=== PATIENT | female | born 1935 | race Caucasian/White ===

== ENCOUNTER 2018-08-16 10:54 | Outpatient (CLI) | payer OTHER | END 2018-08-16 10:55 | disposition home or self-care (01) | LOC: LAB 10:54 | PROVIDERS: ATTEND Family Medicine | DX: E11.9 Type 2 diabetes mellitus without complications (principal); R30.0 Dysuria | CPT/HCPCS: 36415; 80053; 81001; 83036; 85027 ==

== ENCOUNTER 2018-11-25 07:24 | Outpatient (CLI) | END 2018-11-25 07:25 | disposition home or self-care (01) | LOC: NONPT 07:24 | PROVIDERS: ATTEND Internal Medicine | DX: N39.0 Urinary tract infection, site not specified (principal) | CPT/HCPCS: 81001; 87086 ==

== ENCOUNTER 2020-04-16 14:33 | Inpatient (IN) ==
[2020-04-16 15:26] VITALS: BMI 24.6
[2020-04-16] MEDS ORDERED: URO-JET MUCOUSMEMB STA (15:31)
[2020-04-16] MEDS ORDERED: SODIUM CHLORIDE 1,000 ML IV STA (15:37)
[2020-04-16] MEDS ORDERED: TYLENOL PO PRN (15:43)
[2020-04-16 15:54] LABS: ABG BASE EXCESS -3.8 (-2.0-2.0); ABG HCO3 22.6 (22.0-26.0)
--- NOTE | 2020-04-16 16:34 | DI ---
EXAM: Single view of the chest. History: 05/03/2019 Comparison: Chest radiograph 04/06/2020 Findings: Heart is mildly enlarged. Patchy bilateral lung infiltrates. No obvious pleural fluid an d no pneumothorax. No acute osseous abnormalities. Impression: Mild cardiomegaly with patchy bilateral lung infiltrates suspicious for pneumonia
[2020-04-16 17:10] LABS: TROPONIN I 0.079 ng/ml (0.0000-0.120)
[2020-04-16 17:12] LABS: URIC ACID 15.13 mg/dL (2.5-6.2)
[2020-04-16 17:16] LABS: BILIRUBIN,URINE Negative (NEGATIVE); CLARITY,URINE Cloudy (CLEAR); GLUCOSE, URINE (UA) Negative (NEGATIVE); KETONES,URINE Negative (NEGATIVE); LEUKOCYTE ESTERASE ,URINE 3+ (NEGATIVE); NITRITE,URINE Negative (NEGATIVE); PROTEIN,URINE 1+ (NEGATIVE); URINE, BLOOD 2+ (NEGATIVE); UROBILINOGEN,URINE 0.2 (0.2)
[2020-04-16 17:23] LABS: BACTERIA,URINE 3+ (NOT PRESENT); URINE WBC, MICROSCOPIC 50-100 (0-2); YEAST,URINE 1+ (NOT PRESENT)
[2020-04-16 17:33] LABS: AMORPHOUS SEDIMENT,UR 1+ (NOT PRESENT); URIC ACID CRYSTALS,URINE 1+ (NOT PRESENT)
[2020-04-16 17:34] LABS: COLOR,URINE Yellow (YELLOW)
[2020-04-16] MEDS: DECADRON IM SCH (18:13)
[2020-04-16] MEDS: ROCEPHIN 1 GM/50 ML D5W 1 GM/50 ML BAG IV SCH (18:13)
[2020-04-16] MEDS: ATIVAN IM PRN (18:14)
[2020-04-16] MEDS ORDERED: ZITHROMAX 250 MG in SODIUM CHLORIDE 250 ML IV SCH (18:30)
[2020-04-16] MEDS: VENTOLIN HFA (PER PUFF-WITH SPACER) IH SCH (19:35)
[2020-04-16 20:05] LABS: BASOPHILS % (AUTO) 0.2 % (0.0-3.0); HEMATOCRIT 47.3 % (37.0-47.0); HEMOGLOBIN 15.5 g/dl (12.0-16.0); IMMATURE GRANULOCYTE # (AUTO) 0.2 (0.0-1.0); IMMATURE GRANULOCYTE % (AUTO) 1.6 % (0.0-5.0); LYMPHOCYTES # (AUTO) 0.8 K/uL (0.60-3.4); LYMPHOCYTES % (AUTO) 6.1 (10.0-50.0); MEAN CORPUSCULAR HEMOGLOBIN 32.3 pg (27.0-31.0); MEAN CORPUSCULAR HGB CONC 32.8 (31.8-35.4); MEAN CORPUSCULAR VOLUME 98.5 fl (81.0-99.0); MONOCYTES # (AUTO) 0.7 K/uL (0.4-2.0); MONOCYTES % (AUTO) 5.8 (0-10); NEUTROPHILS # (AUTO) 10.5 K/ul (2.0-6.9); NEUTROPHILS % (AUTO) 86.3 % (42.2-75.2); PLATELET COUNT 191 10^3/uL (140-440); RDW COEFFICIENT OF VARIATION 14.9 % (11.6-14.8); WHITE BLOOD COUNT 12.21 K/ul (4.6-10.2)
[2020-04-16 20:25] LABS: ALANINE AMINOTRANSFERASE 32.5 U/L (0-35); ALBUMIN 3.71 g/dL (3.5-5.0); ALKALINE PHOSPHATASE 80.5 U/L (53-141); ASPARTATE AMINO TRANSFERASE 56.4 U/L (14-36); BILIRUBIN,TOTAL 0.45 mg/dL (0.2-1.3); CALCIUM 8.14 mg/dL (8.4-10.2); CARBON DIOXIDE 18.5 mmol/L (22-30.0); CHLORIDE 106.5 mmol/L (98-107); GLUCOSE 131.4 mg/dL (74-106); POTASSIUM 5.56 mmol/L (3.5-5.1); SODIUM 142.8 mmol/L (134.5-145); TOTAL PROTEIN 7.62 g/dL (6.3-8.2)
[2020-04-16] MEDS: SYMBICORT 160-4.5 MCG INHALER IH SCH (20:28)
[2020-04-16] MEDS: HALDOL IM PRN (20:28)
[2020-04-16 20:53] LABS: BLOOD UREA NITROGEN 160.2 mg/dL (7-17)
[2020-04-16 20:54] LABS: CREATININE 6.02 mg/dL (0.60-1.30)
[2020-04-16] MEDS ORDERED: COZAAR PO SCH (21:00)
[2020-04-16] MEDS ORDERED: VENTOLIN HFA (PER PUFF-WITH SPACER) IH SCH (21:00)
[2020-04-16] MEDS ORDERED: DESYREL PO SCH (21:00)
[2020-04-16] MEDS: LEVEMIR SUBCUT SCH (21:07)
[2020-04-17] MEDS: ATIVAN IM PRN ×4 (04:13→19:38)
[2020-04-17] MEDS: VENTOLIN HFA (PER PUFF-WITH SPACER) IH SCH ×3 (05:27→19:20)
[2020-04-17 05:51] LABS: BASOPHILS % (AUTO) 0.3 % (0.0-3.0); HEMATOCRIT 45.4 % (37.0-47.0); IMMATURE GRANULOCYTE # (AUTO) 0.2 (0.0-1.0); IMMATURE GRANULOCYTE % (AUTO) 1.9 % (0.0-5.0); LYMPHOCYTES # (AUTO) 0.4 K/uL (0.60-3.4); LYMPHOCYTES % (AUTO) 4.7 (10.0-50.0); MEAN CORPUSCULAR HEMOGLOBIN 32.4 pg (27.0-31.0); MEAN CORPUSCULAR VOLUME 98.1 fl (81.0-99.0); MONOCYTES # (AUTO) 0.3 K/uL (0.4-2.0); MONOCYTES % (AUTO) 2.7 (0-10); NEUTROPHILS # (AUTO) 8.4 K/ul (2.0-6.9); NEUTROPHILS % (AUTO) 90.4 % (42.2-75.2); PLATELET COUNT 182 10^3/uL (140-440); RDW COEFFICIENT OF VARIATION 14.7 % (11.6-14.8); RED BLOOD COUNT 4.63 10^6/ul (4.20-5.40); WHITE BLOOD COUNT 9.32 K/ul (4.6-10.2)
[2020-04-17 06:04] LABS: ALANINE AMINOTRANSFERASE 29.5 U/L (0-35); ALBUMIN 3.45 g/dL (3.5-5.0); ALKALINE PHOSPHATASE 75.2 U/L (53-141); ASPARTATE AMINO TRANSFERASE 52.4 U/L (14-36); BILIRUBIN,TOTAL 0.39 mg/dL (0.2-1.3); CALCIUM 8.22 mg/dL (8.4-10.2); CARBON DIOXIDE 20.3 mmol/L (22-30.0); CHLORIDE 112.1 mmol/L (98-107); GLUCOSE 163.3 mg/dL (74-106); POTASSIUM 5.32 mmol/L (3.5-5.1); SODIUM 145.1 mmol/L (134.5-145); TOTAL PROTEIN 7.2 g/dL (6.3-8.2)
[2020-04-17 06:21] LABS: CREATININE 5.44 mg/dL (0.60-1.30)
[2020-04-17] MEDS ORDERED: SYNTHROID PO SCH ×2 (06:30)
[2020-04-17] MEDS: SODIUM CHLORIDE 1,000 ML IV SCH ×2 (07:59→22:34)
[2020-04-17] MEDS ORDERED: PREDNISONE PO SCH (09:00)
[2020-04-17] MEDS ORDERED: MICRO-K CAP PO SCH (09:00)
[2020-04-17] MEDS ORDERED: ZINC-220 PO SCH (09:00)
[2020-04-17] MEDS: LEVEMIR SUBCUT SCH ×2 (09:22→20:21)
[2020-04-17] MEDS: DECADRON IM SCH (09:26)
[2020-04-17] MEDS: HALDOL IM PRN ×2 (09:30→20:59)
[2020-04-17] MEDS: SYMBICORT 160-4.5 MCG INHALER IH SCH ×2 (09:33→23:48)
[2020-04-17] MEDS: ZITHROMAX 500 MG in SODIUM CHLORIDE 250 ML IV SCH (12:46)
[2020-04-17] MEDS ORDERED: LIDOCAINE HCL 1% SDV ONE (13:48)
[2020-04-17] MEDS ORDERED: ROCEPHIN 1 GM VIAL ONE (13:48)
[2020-04-17] MEDS: LIDOCAINE HCL 1% SDV IM STA (13:52)
[2020-04-17] MEDS: ROCEPHIN 1 GM VIAL IM SCH (15:06)
[2020-04-17] MEDS: ROCEPHIN 1 GM/50 ML D5W 1 GM/50 ML BAG IV SCH (15:09)
[2020-04-18] MEDS: VENTOLIN HFA (PER PUFF-WITH SPACER) IH SCH ×3 (04:45→20:20)
[2020-04-18 08:21] LABS: BASOPHILS % (AUTO) 0.3 % (0.0-3.0); HEMATOCRIT 46.4 % (37.0-47.0); IMMATURE GRANULOCYTE # (AUTO) 0.2 (0.0-1.0); IMMATURE GRANULOCYTE % (AUTO) 1.8 % (0.0-5.0); LYMPHOCYTES # (AUTO) 0.7 K/uL (0.60-3.4); LYMPHOCYTES % (AUTO) 5.8 (10.0-50.0); MEAN CORPUSCULAR HEMOGLOBIN 32.2 pg (27.0-31.0); MEAN CORPUSCULAR HGB CONC 32.3 (31.8-35.4); MEAN CORPUSCULAR VOLUME 99.6 fl (81.0-99.0); MONOCYTES # (AUTO) 1.3 K/uL (0.4-2.0); MONOCYTES % (AUTO) 11.1 (0-10); NEUTROPHILS # (AUTO) 9.2 K/ul (2.0-6.9); PLATELET COUNT 227 10^3/uL (140-440); RDW COEFFICIENT OF VARIATION 15.2 % (11.6-14.8); RED BLOOD COUNT 4.66 10^6/ul (4.20-5.40); WHITE BLOOD COUNT 11.38 K/ul (4.6-10.2)
[2020-04-18 09:06] LABS: ALANINE AMINOTRANSFERASE 27.9 U/L (0-35); ALBUMIN 3.41 g/dL (3.5-5.0); ASPARTATE AMINO TRANSFERASE 39.1 U/L (14-36); BILIRUBIN,TOTAL 0.4 mg/dL (0.2-1.3); CALCIUM 9.31 mg/dL (8.4-10.2); CARBON DIOXIDE 20.9 mmol/L (22-30.0); CREATININE 2.7 mg/dL (0.60-1.30); GLUCOSE 171.8 mg/dL (74-106); POTASSIUM 5.3 mmol/L (3.5-5.1); SODIUM 154.5 mmol/L (134.5-145); TOTAL PROTEIN 7.3 g/dL (6.3-8.2)
[2020-04-18 09:16] LABS: CHLORIDE 125.1 mmol/L (98-107)
[2020-04-18 09:20] LABS: BLOOD UREA NITROGEN 118.1 mg/dL (7-17)
--- NOTE | 2020-04-18 09:51 | PCM.PROG ---
Attending Provider: ATTENDING PROVIDER: Dr. ANALIA HILL This patient is seen with Cyn Meyers, Nurse Practitioner. DATE OF SERVICE: 04/18/20 SUBJECTIVE: This 85 year old /WHITE F was hospitalized 04/16/20. The patient is resting comfortably. She has been less anxious and agitated on Ativan. Kidney function slightly improved. Sodium is slightly elevated. REVIEW OF SYSTEMS: CONSTITUTIONAL: No night sweats. No fatigue, malaise, lethargy. No fever or chills. Weakness. HEENT: Eyes: No visual changes. No eye pain. No eye discharge. ENT: No runny nose. No epistaxis. No sinus pain. No odynophagia. No congestion. RESPIRATORY: No cough, no congestion. No hemoptysis. Shortness of breath. CARDIOVASCULAR: No angina symptoms. No CHF symptoms. No atypical chest pain for CAD. No palpitations. No orthopnea.. GASTROINTESTINAL: No abdominal pain. No nausea or vomiting. No diarrhea or constipation. No hematemesis. No hematochezia. GENITOURINARY: No urgency. No frequency. No dysuria. No hematuria. No obstructive symptoms. No discharge. No pain. No significant abnormal bleeding. MUSCULOSKELETAL: No musculoskeletal pain; no joint swelling. NEUROLOGICAL: Awake, alert, confusion. No headache. No neck pain. No syncope. No seizures. No dizziness. PSYCHIATRIC: Not anxious. No depression. No suicidal thoughts. No homicidal thoughts. SKIN: No rash. No lesions. No wounds. ENDOCRINE: No unexplained weight loss. No weight gain. HEMATOLOGIC/LYMPHATIC: No anemia. No purpura. No petechiae. No prolonged or excessive bleeding. No palpable lymph nodes. PHYSICAL EXAMINATION: GENERAL: The patient is awake, alert and oriented, lying in bed in no distress. VITAL SIGNS: Temperature 96.9 F, Pulse 90, Respiratory Rate 19, BP 144/90, Pulse Ox 96% HEENT: Head normocephalic, atraumatic. Eyes: Extraocular muscles are intact. Pupils are equal, round and reactive to light and accommodation. Ears: No lesions. Nose appeared normal. Throat: No exudate or erythema. NECK: Supple. No JVD, no carotid bruit. No lymphadenopathy or thyromegaly. LUNGS: Clear to auscultation. Percussion note normal. Chest symmetrical. HEART: S1, S2, no S3. No murmurs. No cyanosis or clubbing. No ascites. Pulses: Dorsalis pedis and posterior tibial pulses +1 to +2 both sides. ABDOMEN: Soft. Non-tender. Bowel sounds active. No CVA tenderness. No mass fe lt. EXTREMITIES: Trace edema. Full range of motion of all extremities, equal. NEUROLOGIC: No focal deficit. Cranial nerves II through XII are grossly intact. No headache, no double vision or headache. SKIN: Not dry. Intact. Turgor-normal. LYMPHATIC: No palpable lymph nodes/no lymphedema. MUSCULOSKELETAL: Normal joints with no swelling. Muscle tone is normal. LAB REVIEW: 04/18/20 07:55 04/17/20 05:30 04/18/20 07:55: WBC 11.38 H, RBC 4.66, Hgb 15.0, Hct 46.4, MCV 99.6 H, MCH 32.2 H, MCHC 32.3, RDW Coeff of Raine 15.2 H, Plt Count 227, Immature Gran % (Auto) 1.8, Neut % (Auto) 81.0 H, Lymph % (Auto) 5.8 L, Hayes % (Auto) 11.1 H, Eos % (Auto) 0.0, Baso % (Auto) 0.3, Neut # (Auto) 9.2 H, Lymph # (Auto) 0.7, Hayes # (Auto) 1.3, Eos # (Auto) 0.0, Baso # (Auto) 0.0, Immature Gran # (Auto) 0.2 ASSESSMENT: Please see below. 1. Acute renal failure 2. Hypernatremia 3. Hyperkalemia 4. Bilateral pneumonia due to COVID 19 5. Dementia with behavioral disturbances PLAN: 1. Discontinue normal saline 2. Change IV fluids D5 1/2 at 100cc per hour Plan and coordination of the patient's care discussed in the presence of Head Of Drama and nurse. SCRIBED BY: Janell ENGist scribed while in presence of service performed by Dr. Hill/Cyn Meyers APRN on 04/18/20 ([id number])
[2020-04-18] MEDS: DEXTROSE 5%-1/2NS IV SOLUTION 1,000 ML IV SCH ×2 (10:12→22:16)
--- NOTE | 2020-04-18 11:22 | PN ---
DATE OF SERVICE: 04/16/2020 SUBJECTIVE: [facility]. Admitted orders were written by the Emergency room. It was decided not for this patient to stop in the emergency room because she has been COVID positive for past 10-12 days. Her BUN is more than 100 and creatinine 6.2. She is in acute renal failure. Last creatinine and BUN were acceptable and that was nearly 4-54 days ago and she was discharged from the hospital at [facility]. Her condition has deteriorated and she hasn't been eating or drink and she is more or less obtunded. She is DNR. The patient's daughter who is director of retail marketing Home, she is also hit was COVID unable to take care of the patient. In any case the [facility] is a [facility] the [facility]. The patient will be given IV fluids and whatever she could be treated with noninvasive measures. REVIEW OF SYSTEMS: CONSTITUTIONAL: No night sweats. No fatigue, malaise, lethargy. No fever or chills. HEENT: Eyes: No visual changes. No eye pain. No eye discharge. ENT: No runny nose. No epistaxis. No sinus pain. No sore throat. No odynophagia. No congestion. RESPIRATORY: No cough, no congestion. No hemoptysis. No shortness of breath. CARDIOVASCULAR: No angina symptoms. No CHF symptoms. No atypical chest pain for CAD. No palpitations. No PND. No orthopnea. GASTROINTESTINAL: No abdominal pain. No nausea or vomiting. No diarrhea or constipation. No hematemesis. No hematochezia. GENITOURINARY: No urgency. No frequency. No dysuria. No hematuria. No obstructive symptoms. No discharge. No pain. No significant abnormal bleeding. MUSCULOSKELETAL: No musculoskeletal pain; no joint swelling. NEUROLOGICAL: No headache. No neck pain. No syncope. No seizures. No dizziness. PSYCHIATRIC: Not anxious. No depression. No suicidal thoughts. No homicidal thoughts. SKIN: No rash. No lesions. No wounds. ENDOCRINE: No unexplained weight loss. No weight gain. HEMATOLOGIC/LYMPHATIC: No anemia. No purpura. No petechiae. No prolonged or excessive bleeding. No palpable lymph nodes. PHYSICAL EXAMINATION: GENERAL: The patient is restless and sleepy. VITAL SIGNS: Respiratory rate 22, blood pressure systolic 90, temperature 101, pulse 100. HEENT: Head normocephalic, atraumatic. Eyes: Extraocular muscles are intact. Pupils are equal, round and reactive to light and accommodation. Ears: No lesions. Nose appeared normal. Throat: No exudate or erythema. Mucous membrane dry. NECK: Supple. No JVD, no carotid bruit. No lymphadenopathy or thyromegaly. LUNGS: Decreased breath sounds. Clear to auscultation. Percussion note normal. Chest symmetrical. HEART: S1, S2, no S3. No murmurs. No cyanosis or clubbing. No ascites. Pulses: Dorsalis pedis and posterior tibial pulses +1 to +2 bilaterally. ABDOMEN: Soft. Nontender. Bowel sounds active. No CVA tenderness. No mass felt. EXTREMITIES: No edema. Full range of motion of all extremities, equal. NEUROLOGIC: No focal deficit. Cranial nerves II through XII are grossly intact. No headache, no double vision or headache. SKIN: Not dry. Intact. Turgor - Poor LYMPHATIC: No palpable lymph nodes/no lymphedema. MUSCULOSKELETAL: Normal joints with no swelling. Muscle tone is normal. LABS: Arterial blood gasses shows pH 7.3 with oxygen saturation 98% on 3 liters. The patient's oxygen will be cut down to 2 liters and still it is sating at 90-95. pCo2 46 borderline high. The patient has remained a little bit restless so she will be given 1mg Haldol every 6 hourly. Ativan 1mg 6 hourly IM. Also there has been a difficulty starting the IV fluids. She will be getting a bolus after that. It will 125cc per hour. Chest x-ray showed patchy pneumonia ASSESSMENT: 1. Acute renal failure 2. Patchy pneumonia likely COVID 3. Dementia 4. Dehydration 5. Diabetes mellitus PLAN: 1. Rocephin 1 gram IV for secondary infection 2. Dexamethasone 6mg IM every day 3. Sliding scale for insulin 4. EKG to be done 5. Telemetry 6. Oxygen 2 liters 7. Ativan and Haldol as mentioned above. 8. Daily CBC and CMP PROGNOSIS: POOR 2. 3. TIME SPENT: More than 30 minutes. Plan and coordination of the patient's care discussed in the presence of nurse. DANIELLE
[2020-04-18] MEDS: ZITHROMAX 500 MG in SODIUM CHLORIDE 250 ML IV SCH (11:30)
[2020-04-18] MEDS: LEVEMIR SUBCUT SCH ×2 (11:36→20:35)
[2020-04-18] MEDS: DECADRON IM SCH (11:40)
[2020-04-18] MEDS: SYMBICORT 160-4.5 MCG INHALER IH SCH ×2 (12:15→20:35)
[2020-04-18] MEDS: ROCEPHIN 1 GM VIAL IM SCH (12:18)
[2020-04-18] MEDS: LIDOCAINE HCL 1% SDV IM STA (12:19)
[2020-04-18] MEDS: SODIUM CHLORIDE 1,000 ML IV SCH (12:23)
--- NOTE | 2020-04-18 14:57 | HP ---
DATE OF SERVICE: 04/16/20 HISTORY OF PRESENT ILLNESS: The patient was recently hospitalized with Covid-19, right lower extremity edema and cellulitis and acute bronchitis. She has a history of chronic kidney disease, creatinine stable when she left. At 1.2 today at the correction. Repeat CMP was done which showed a BUN of 157 and creatinine 6.88. She is a direct admit for acute renal failure. PAST MEDICAL HISTORY: Positive Covid-19 on 04/06/20 Right lower extremity edema and cellulitis Recent bronchitis Dementia with behavioral disturbances Chronic kidney disease Stage 2 to 3 Diabetes mellitus type 2 GERD Polyarthritis Hypothyroidism Recurrent falls Obesity B12 deficiency Chronic leg edema Recurrent UTI PAST SURGICAL HISTORY: Bilateral total knee replacement Cholecystectomy Carpal tunnel surgery REVIEW OF SYSTEMS: CONSTITUTIONAL: Weakness. No night sweats. No fatigue, malaise, lethargy. No fever or chills. HEENT: Eyes: No visual changes. No eye pain. No eye discharge. ENT: No runny nose. No epistaxis. No sinus pain. No sore throat. No odynophagia. No ear pain. No congestion. RESPIRATORY: No cough, no congestion. No hemoptysis. No shortness of breath. CARDIOVASCULAR: No angina symptoms. No CHF symptoms. No atypical chest pain for CAD. No palpitations. No PND. No orthopnea. GASTROINTESTINAL: No abdominal pain. No nausea or vomiting. No diarrhea or constipation. No hematemesis. No hematochezia. GENITOURINARY: No urgency. No frequency. No dysuria. No hematuria. No obstructive symptoms. No discharge. No pain. No significant abnormal bleeding. MUSCULOSKELETAL: No musculoskeletal pain. No joint swelling. No arthritis. NEUROLOGICAL: Confusion. No headache. No neck pain. No syncope. No seizures. No dizziness. PSYCHIATRIC: Not anxious. No depression. No suicidal thoughts. No homicidal thoughts. SKIN: No rash. No lesions. No wounds. ENDOCRINE: No unexplained weight loss. No weight gain. HEMATOLOGIC/LYMPHATIC: No anemia. No purpura. No petechiae. No prolonged or excessive bleeding. No palpable lymph nodes. PERSONAL/FAMILY/SOCIAL HISTORY: She is , lives at [place]. Her POA is her daughter. She is a nonsmoker. No alcohol or ilicit drug use. MEDICATIONS: Potassium Chloride 10 mEq p.o. daily Detemir Insulin 20 unit subcut b.i.d. Furosemide 40 mg p.o. daily Cetirizine 10 mg p.o. daily Acetaminophen 325 mg p.o. q.i.d. p.r.n. Acetaminophen 650 mg p.o. b.i.d. p.r.n. Trazodone 50 mg p.o. bedtime Levothyroxine 125 mcg p.o. daily Insulin aspart U-100 one sliding scale dose subcut as directed Cyanocobalamin 1000 mcg monthly Spironolactone 25 mg p.o. daily Bisacodyl 10 mg p.o. bedtime Cholecalciferol 125 mcg p.o. daily Famotidine 20 mg p.o. b.i.d. Prednisone 10 mg p.o. daily 5 days Zinc Sulfate 220 mg p.o. daily Albuterol Sulfate two puff INH t.i.d. 30 days Budesonide - Formoterol two puff INH b.i.d. Lorazepam 0.5 mg p.o. b.i.d. Losartan 50 mg p.o. b.i.d. ALLERGIES: CEPHALEXIN, HYDROCODONE, MORPHINE PHYSICAL EXAMINATION: GENERAL: The patient has decreased responsiveness however she is alert, pleasantly confused. Pallor positive. Dry mucous membranes. HEENT: Head normocephalic, atraumatic. Eyes: Extraocular muscles are intact. Pupils are equal, round and reactive to light and accommodation. Ears: No lesions. Nose appeared normal. Throat: No exudate or erythema. NECK: Supple. No JVD, no carotid bruit. No lymphadenopathy or thyromegaly. LUNGS: Diminished breath sounds. Clear to auscultation. Percussion note normal. Chest symmetrical. HEART: S1, S2, no S3. No murmur. No cyanosis or clubbing. No ascites. Pulses: Dorsalis pedis and posterior tibial pulses +1 to +2 bilaterally. ABDOMEN: Soft. Nontender. Bowel sounds active. No CVA tenderness. No mass felt. EXTREMITIES: Trace bilateral leg edema. Full range of motion of all extremities, equal. NEUROLOGIC: No focal deficit. Cranial nerves II through XII are grossly intact. No headache, no double vision or headache. SKIN: Not dry. Intact. Turgor - normal. LYMPHATIC: No palpable lymph nodes/no lymphedema. MUSCULOSKELETAL: Normal joints with no swelling. Muscle tone is normal. Sodium 141, potassium 5.19, BUN 157, creatinine 6.88, glucose 80, AST 67, ALT 31, total protein 7.4, alkaline phosphatase 77. Uric acid 15.13. Urine 1+ protein, 2+ blood, 3+ leuks, 3+ bacteria. White count 13.22, hemoglobin 15.8, hematocrit 48.8, platelets 168. Chest x-ray shows mild cardiomegaly with patchy bilateral lung infiltrates suspicious for pneumonia. ASSESSMENT: 1. Acute renal failure. 2. Covid-19. 3. Bilateral pneumonia due to Covid-19. 4. Dementia with behavioral disturbances. 5. Possible UTI, culture pending. 6. Diabetes mellitus type 2. 7. Underlying chronic kidney disease. PLAN: 1. We will admit. 2. Routine telemetry orders. 3. The patient is to be in isolation with Covid precautions. 4. Start NS at 125 cc/hr IV. 5. Start Rocephin 1 gm IV daily along with Zithromax 250 mg IV daily. 6. Decadron 6 mg IM daily. 7. Continue Pepcid 20 b.i.d. 8. Can do Ativan 0.5 mg q.4hr p.r.n. along with Haldol 1 mg IM q.6hr p.r.n. 9. Urine for culture and sensitivity. 10. Fall precautions. 11. 02 at 1 to 2L. 12. ABGs on room air. 13. Will follow closely. TIME SPENT: More than 70 minutes. MTDD
[2020-04-18] MEDS: HUMALOG SUBCUT PRN (18:54)
[2020-04-18] MEDS: HALDOL IM PRN (22:17)
[2020-04-19] MEDS: ATIVAN IM PRN ×2 (00:32→07:58)
[2020-04-19 04:51] LABS: HEMATOCRIT 47.6 % (37.0-47.0); HEMOGLOBIN 15.2 g/dl (12.0-16.0); MEAN CORPUSCULAR HEMOGLOBIN 32.3 pg (27.0-31.0); MEAN CORPUSCULAR HGB CONC 31.9 (31.8-35.4); MEAN CORPUSCULAR VOLUME 101.1 fl (81.0-99.0); PLATELET COUNT 189 10^3/uL (140-440); RDW COEFFICIENT OF VARIATION 14.9 % (11.6-14.8); RED BLOOD COUNT 4.71 10^6/ul (4.20-5.40); WHITE BLOOD COUNT 10.68 K/ul (4.6-10.2)
[2020-04-19 04:58] LABS: ANISOCYTOSIS NOT PRESENT (NOT PRESENT)
[2020-04-19 05:04] LABS: ALANINE AMINOTRANSFERASE 26.7 U/L (0-35); ALBUMIN 3.26 g/dL (3.5-5.0); ALKALINE PHOSPHATASE 73.7 U/L (53-141); ASPARTATE AMINO TRANSFERASE 39.8 U/L (14-36); BILIRUBIN,TOTAL 0.48 mg/dL (0.2-1.3); CALCIUM 9.43 mg/dL (8.4-10.2); CARBON DIOXIDE 23.1 mmol/L (22-30.0); CREATININE 1.85 mg/dL (0.60-1.30); GLUCOSE 288.4 mg/dL (74-106); POTASSIUM 5.42 mmol/L (3.5-5.1); SODIUM 155.5 mmol/L (134.5-145); TOTAL PROTEIN 6.99 g/dL (6.3-8.2)
[2020-04-19] MEDS: VENTOLIN HFA (PER PUFF-WITH SPACER) IH SCH ×3 (05:19→19:45)
[2020-04-19 05:20] LABS: BLOOD UREA NITROGEN 88.5 mg/dL (7-17); CHLORIDE 127.9 mmol/L (98-107)
[2020-04-19] MEDS: LEVEMIR SUBCUT SCH ×2 (08:44→21:02)
[2020-04-19] MEDS: ZITHROMAX 500 MG in SODIUM CHLORIDE 250 ML IV SCH (08:46)
[2020-04-19] MEDS: DEXTROSE 5%-1/2NS IV SOLUTION 1,000 ML IV SCH ×2 (08:54→20:45)
[2020-04-19] MEDS ORDERED: LIDOCAINE HCL 1% SDV INJ STA (08:55)
[2020-04-19] MEDS: ROCEPHIN 1 GM VIAL IM SCH (08:57)
[2020-04-19] MEDS: DECADRON IM SCH (08:57)
[2020-04-19] MEDS: MORPHINE 2 MG/ML SYRINGE IVP PRN (09:06)
[2020-04-19] MEDS: SYMBICORT 160-4.5 MCG INHALER IH SCH ×2 (09:11→21:14)
--- NOTE | 2020-04-19 09:24 | PCM.PROG ---
Attending Provider: ATTENDING PROVIDER: Dr. ANALIA HILL This patient is seen with Cyn Meyers, Nurse Practitioner. DATE OF SERVICE: 04/19/20 SUBJECTIVE: This 85 year old /WHITE F was hospitalized 04/16/20. The patient is anxious and moaning. She acts as if she might be in pain. Still confused. REVIEW OF SYSTEMS: CONSTITUTIONAL: No night sweats. No fatigue, malaise, lethargy. No fever or chills. Weakness. HEENT: Eyes: No visual changes. No eye pain. No eye discharge. ENT: No runny nose. No epistaxis. No sinus pain. No odynophagia. No congestion. RESPIRATORY: No cough, no congestion. No hemoptysis. No shortness of breath. CARDIOVASCULAR: No angina symptoms. No CHF symptoms. No atypical chest pain for CAD. No palpitations. No orthopnea.. GASTROINTESTINAL: No abdominal pain. No nausea or vomiting. No diarrhea or constipation. No hematemesis. No hematochezia. GENITOURINARY: No urgency. No frequency. No dysuria. No hematuria. No obstructive symptoms. No discharge. No pain. No significant abnormal bleeding. MUSCULOSKELETAL: No musculoskeletal pain; no joint swelling. NEUROLOGICAL: Awake, alert, confusion. No headache. No neck pain. No syncope. No seizures. No dizziness. PSYCHIATRIC: Not anxious. No depression. No suicidal thoughts. No homicidal thoughts. SKIN: No rash. No lesions. No wounds. ENDOCRINE: No unexplained weight loss. No weight gain. HEMATOLOGIC/LYMPHATIC: No anemia. No purpura. No petechiae. No prolonged or excessive bleeding. No palpable lymph nodes. PHYSICAL EXAMINATION: GENERAL: The patient is awake, alert , lying in bed in no distress. VITAL SIGNS: Temperature 97.2 F, Pulse 97, Respiratory Rate 20, BP 158/85, Pulse Ox 90% HEENT: Head normocephalic, atraumatic. Eyes: Extraocular muscles are intact. Pupils are equal, round and reactive to light and accommodation. Ears: No lesions. Nose appeared normal. Throat: No exudate or erythema. NECK: Supple. No JVD, no carotid bruit. No lymphadenopathy or thyromegaly. LUNGS: Diminished breath sounds. Clear to auscultation. Percussion note normal. Chest symmetrical. HEART: S1, S2, no S3. No murmurs. No cyanosis or clubbing. No ascites. Pulses: Dorsalis pedis and posterior tibial pulses +1 to +2 both sides. ABDOMEN: Soft. Non-tender. Bowel sounds active. No CVA tenderness. No mass felt. EXTREMITIES: No edema. Full range of motion of all extremities, equal. NEUROLOGIC: No focal deficit. Cranial nerves II through XII are grossly intact. No headache, no double vision or headache. SKIN: Not dry. Intact. Turgor-normal. LYMPHATIC: No palpable lymph nodes/no lymphedema. MUSCULOSKELETAL: Normal joints with no swelling. Muscle tone is normal. LAB REVIEW: 04/19/20 04:35 04/19/20 04:35 04/19/20 04:35: Sodium 155.5 H, Potassium 5.42 H, Chloride 127.9 H*, Carbon Dioxide 23.1, Anion Gap 9.92, BUN 88.5 H* D, Creatinine 1.85 H D, Estimated GFR (MDRD) 26.00, BUN/Creatinine Ratio 47.83, Glucose 288.4 H D, Calcium 9.43, Total Bilirubin 0.48, AST 39.8 H, ALT 26.7, Alkaline Phosphatase 73.7, Total Protein 6.99, Albumin 3.26 L, Globulin 3.73, Albumin/Globulin Ratio 0.87 04/19/20 04:35: WBC 10.68 H, RBC 4.71, Hgb 15.2, Hct 47.6 H, MCV 101.1 H, MCH 32.3 H, MCHC 31.9, RDW Coeff of Raine 14.9 H, Plt Count 189, Neutrophils % (Manual) 90.0 H, Lymphocytes % (Manual) 2.0 L, Monocytes % (Manual) 8.0, Anisocytosis Not present 04/18/20 07:55: Sodium 154.5 H, Potassium 5.30 H, Chloride 125.1 H, Carbon Dioxide 20.9 L, Anion Gap 13.80, BUN 118.1 H* D, Creatinine 2.70 H D, Estimated GFR (MDRD) 17.00, BUN/Creatinine Ratio 43.74, Glucose 171.8 H, Calcium 9.31, Total Bilirubin 0.40, AST 39.1 H, ALT 27.9, Alkaline Phosphatase 77.0, Total Protein 7.30, Albumin 3.41 L, Globulin 3.89, Albumin/Globulin Ratio 0.87 04/18/20 07:55: WBC 11.38 H, RBC 4.66, Hgb 15.0, Hct 46.4, MCV 99.6 H, MCH 32.2 H, MCHC 32.3, RDW Coeff of Raine 15.2 H, Plt Count 227, Immature Gran % (Auto) 1.8, Neut % (Auto) 81.0 H, Lymph % (Auto) 5.8 L, Cooper % (Auto) 11.1 H, Eos % (Auto) 0.0, Baso % (Auto) 0.3, Neut # (Auto) 9.2 H, Lymph # (Auto) 0.7, Cooper # (Auto) 1.3, Eos # (Auto) 0.0, Baso # (Auto) 0.0, Immature Gran # (Auto) 0.2 ASSESSMENT: Please see below. 1. Acute renal failure 2. Bilateral pneumonia due to COVID 3. CKD 4. Hypernatremia 5. Hyperkalemia PLAN: 1. Repeat chest x-ray tomorrow 2. Continue D5 0.5 normal saline 3. Renal function steadily improving 4. 1mg Morphine IV Q 3 hours PRN for pain. Plan and coordination of the patient's care discussed in the presence of Insurance Defense Attorney and nurse. SCRIBED BY: LUPE CARLSON Track Dresser scribed while in presence of service performed by Dr. Hill/Cyn Meyers APRN on 04/19/20 ([id number])
--- NOTE | 2020-04-19 12:20 | PN ---
DATE OF SERVICE: 04/18/2020 SUBJECTIVE: The patient seems to be improving some. Her creatinine now is 2.3 with BUN 122 which is remarkable improvement. The patient is on IV fluids. No fluid overload noted. The patient is confused. She her severe Dementia. DNR. Almost like comfort measures. We will continue IV fluids. The patient was seen and examined with Nurse Practitioner. TIME SPENT: More than 30 minutes. Plan and coordination of the patient's care discussed in the presence of nurse. DANIELLE
--- NOTE | 2020-04-19 14:41 | PN ---
DATE OF SERVICE: 04/17/20 SUBJECTIVE: 85-year-old white female hospitalized with acute renal failure. The patient has evidence of now dehydration. The patient was sent back to the senior care a few days ago. Oral intake has been poor in the senior care. Routine blood tests were done which revealed the patient's creatinine was more than 6 with BUN of more than 160. The patient is confused, combative at times. PHYSICAL EXAMINATION: VITAL SIGNS: Temperature 97.1, pulse 80, respiratory rate 19, blood pressure 106/59, pulse ox 95%. HEENT: Head normocephalic, atraumatic. Eyes: Extraocular muscles are intact. Pupils are equal, round and reactive to light and accommodation. Ears: No lesions. Nose appeared normal. Throat: No exudate or erythema. NECK: Supple. No JVD, no carotid bruit. No lymphadenopathy or thyromegaly. LUNGS: Decreased breath sounds but clear to auscultation. Percussion note normal. Chest symmetrical. HEART: S1, S2, no S3. No murmurs. No cyanosis or clubbing. No ascites. Pulses: Dorsalis pedis and posterior tibial pulses +1 to +2 bilaterally. ABDOMEN: Soft. Nontender. Bowel sounds active. No CVA tenderness. No mass felt. EXTREMITIES: No edema. Full range of motion of all extremities, equal. NEUROLOGIC: No focal deficit. Cranial nerves II through XII are grossly intact. No headache, no double vision or headache. SKIN: Dry. Mucous membranes dry at times. LYMPHATIC: No palpable lymph nodes/no lymphedema. MUSCULOSKELETAL: Normal joints with no swelling. Muscle tone is normal. LABS: Hemoglobin 15, hematocrit 45, WBC 9,300, normal differential. Creatinine 5.4, BUN 156, potassium 5.3. c02 is 20 so the patient has metabolic acidosis which was revealed yesterday with even blood gases. Kidney functions are a little bit better. ASSESSMENT: 1. Acute renal failure. 2. Covid-19 with dehydration. 3. Dementia worsening because of renal failure. PLAN: 1. Continue to monitor CBC, CMP. 2. IV fluids. The patient pulled out the IV. The patient had the same problems during last hospitalization. She is so restless that she is pulling out the IVs. Now we are going to increase the Haldol to 2 mg every 4 to 6 hourly along with Ativan 1 mg q.6hr for restlessness so that she can keep her IV site because hydration is very important. Prognosis is poor. She is a DNR. TIME SPENT: More than 30 minutes. Plan and coordination of the patient's care discussed in the presence of nurse. DANIELLE
[2020-04-19] MEDS: HUMALOG SUBCUT PRN ×2 (17:33→20:59)
[2020-04-20] MEDS: MORPHINE 2 MG/ML SYRINGE IVP PRN (02:59)
[2020-04-20] MEDS: ATIVAN IM PRN ×2 (03:48→09:39)
[2020-04-20 04:40] LABS: BASOPHILS % (AUTO) 0.3 % (0.0-3.0); EOSINOPHILS % (AUTO) 0.2 % (0.0-7.0); HEMATOCRIT 45.7 % (37.0-47.0); HEMOGLOBIN 14.4 g/dl (12.0-16.0); IMMATURE GRANULOCYTE # (AUTO) 0.2 (0.0-1.0); IMMATURE GRANULOCYTE % (AUTO) 1.3 % (0.0-5.0); LYMPHOCYTES # (AUTO) 0.6 K/uL (0.60-3.4); LYMPHOCYTES % (AUTO) 5.4 (10.0-50.0); MEAN CORPUSCULAR HEMOGLOBIN 32.3 pg (27.0-31.0); MEAN CORPUSCULAR HGB CONC 31.5 (31.8-35.4); MEAN CORPUSCULAR VOLUME 102.5 fl (81.0-99.0); MONOCYTES # (AUTO) 0.8 K/uL (0.4-2.0); MONOCYTES % (AUTO) 6.8 (0-10); NEUTROPHILS # (AUTO) 9.7 K/ul (2.0-6.9); PLATELET COUNT 176 10^3/uL (140-440); RDW COEFFICIENT OF VARIATION 14.8 % (11.6-14.8); RED BLOOD COUNT 4.46 10^6/ul (4.20-5.40); WHITE BLOOD COUNT 11.27 K/ul (4.6-10.2)
[2020-04-20] MEDS: VENTOLIN HFA (PER PUFF-WITH SPACER) IH SCH ×3 (04:50→20:16)
[2020-04-20 04:54] LABS: ALANINE AMINOTRANSFERASE 26.7 U/L (0-35); ALBUMIN 3.1 g/dL (3.5-5.0); ALKALINE PHOSPHATASE 69.5 U/L (53-141); ASPARTATE AMINO TRANSFERASE 30.8 U/L (14-36); BILIRUBIN,TOTAL 0.48 mg/dL (0.2-1.3); BLOOD UREA NITROGEN 56.3 mg/dL (7-17); CALCIUM 9.77 mg/dL (8.4-10.2); CARBON DIOXIDE 24.3 mmol/L (22-30.0); CREATININE 1.36 mg/dL (0.60-1.30); GLUCOSE 204.5 mg/dL (74-106); POTASSIUM 5.15 mmol/L (3.5-5.1); SODIUM 155.7 mmol/L (134.5-145); TOTAL PROTEIN 6.71 g/dL (6.3-8.2)
[2020-04-20 05:02] LABS: CHLORIDE 128.2 mmol/L (98-107)
[2020-04-20] MEDS: HUMALOG SUBCUT PRN (05:26)
[2020-04-20] MEDS: DEXTROSE 5%-1/2NS IV SOLUTION 1,000 ML IV SCH (06:26)
[2020-04-20] MEDS ORDERED: LIDOCAINE HCL 1% SDV IM SCH (09:00)
--- NOTE | 2020-04-20 09:13 | PCM.PROG ---
Attending Provider: ATTENDING PROVIDER: Dr. ANALIA HILL This patient is seen with Cyn Meyers, Nurse Practitioner. DATE OF SERVICE: 04/20/20 SUBJECTIVE: This 85 year old /WHITE F was hospitalized 04/16/20. Still anxious and agitated. Moaning at times. Morphine seems to help. Today is day 14 from test date. O2 saturation has improved. Kidney function improved but not back to baseline. Still with hypernatremia. REVIEW OF SYSTEMS: CONSTITUTIONAL: No night sweats. No fatigue, malaise, lethargy. No fever or chills. Weakness. HEENT: Eyes: No visual changes. No eye pain. No eye discharge. ENT: No runny nose. No epistaxis. No sinus pain. No odynophagia. No congestion. RESPIRATORY: No cough, no congestion. No hemoptysis. No shortness of breath. CARDIOVASCULAR: No angina symptoms. No CHF symptoms. No atypical chest pain for CAD. No palpitations. No orthopnea.. GASTROINTESTINAL: No abdominal pain. No nausea or vomiting. No diarrhea or constipation. No hematemesis. No hematochezia. Not eating. GENITOURINARY: No urgency. No frequency. No dysuria. No hematuria. No obstructive symptoms. No discharge. No pain. No significant abnormal bleeding. MUSCULOSKELETAL: No musculoskeletal pain; no joint swelling. NEUROLOGICAL: Awake, alert, confusion. No headache. No neck pain. No syncope. No seizures. No dizziness. PSYCHIATRIC: Not anxious. No depression. No suicidal thoughts. No homicidal thoughts. SKIN: No rash. No lesions. No wounds. ENDOCRINE: No unexplained weight loss. No weight gain. HEMATOLOGIC/LYMPHATIC: No anemia. No purpura. No petechiae. No prolonged or excessive bleeding. No palpable lymph nodes. PHYSICAL EXAMINATION: GENERAL: The patient is awake, alert, confusion and not oriented, lying in bed in no distress. VITAL SIGNS: Temperature 97.3 F, Pulse 78, Respiratory Rate 18, BP 169/82, Pulse Ox 95% HEENT: Head normocephalic, atraumatic. Eyes: Extraocular muscles are intact. Pupils are equal, round and reactive to light and accommodation. Ears: No lesions. Nose appeared normal. Throat: No exudate or erythema. NECK: Supple. No JVD, no carotid bruit. No lymphadenopathy or thyromegaly. LUNGS: Diminished breath sounds. Clear to auscultation. Percussion note normal. Chest symmetrical. HEART: S1, S2, no S3. No murmurs. No cyanosis or clubbing. No ascites. Pulses: Dorsalis pedis and posterior tibial pulses +1 to +2 both sides. ABDOMEN: Soft. Non-tender. Bowel sounds active. No CVA tenderness. No mass felt. EXTREMITIES: No edema. Full range of motion of all extremities, equal. NEUROLOGIC: No focal deficit. Cranial nerves II through XII are grossly intact. No headache, no double vision or headache. SKIN: Not dry. Intact. Turgor-normal. LYMPHATIC: No palpable lymph nodes/no lymphedema. MUSCULOSKELETAL: Normal joints with no swelling. Muscle tone is normal. LAB REVIEW: 04/20/20 04:15 04/20/20 04:15 04/20/20 04:15: Sodium 155.7 H, Potassium 5.15 H, Chloride 128.2 H*, Carbon Dioxide 24.3, Anion Gap 8.35, BUN 56.3 H D, Creatinine 1.36 H, Estimated GFR (MDRD) 37.00, BUN/Creatinine Ratio 41.39, Glucose 204.5 H D, Calcium 9.77, Total Bilirubin 0.48, AST 30.8, ALT 26.7, Alkaline Phosphatase 69.5, Total Protein 6.71, Albumin 3.10 L, Globulin 3.61, Albumin/Globulin Ratio 0.85 04/20/20 04:15: WBC 11.27 H, RBC 4.46, Hgb 14.4, Hct 45.7, MCV 102.5 H, MCH 32.3 H, MCHC 31.5 L, RDW Coeff of Raine 14.8, Plt Count 176, Immature Gran % (Auto) 1.3, Neut % (Auto) 86.0 H, Lymph % (Auto) 5.4 L, Rowan % (Auto) 6.8, Eos % (Auto) 0.2, Baso % (Auto) 0.3, Neut # (Auto) 9.7 H, Lymph # (Auto) 0.6, Rowan # (Auto) 0.8, Eos # (Auto) 0.0, Baso # (Auto) 0.0, Immature Gran # (Auto) 0.2 ASSESSMENT: Please see below. 1. Acute renal failure, improving 2. Bilateral pneumonia 3. Hypernatremia 4. Hyperkalemia, improved 5. Dementia with behavioral disturbances 6. COVID positive 7. Possible dysphasia 8. UTI, positive E-coli PLAN: 1. Repeat chest x-ray 2. Speech consult 3. Continue Rocephin 4. Switch to D5 W Plan and coordination of the patient's care discussed in the presence of Computer Security Coordinator and nurse. SCRIBED BY: Marissa ENG scribed while in presence of service performed by Dr. Hill/Cyn Meyers APRN on 04/20/20 ([id number])
[2020-04-20] MEDS: ROCEPHIN 1 GM/50 ML D5W 1 GM/50 ML BAG IV SCH (09:39)
[2020-04-20] MEDS: DECADRON IM SCH (09:39)
[2020-04-20] MEDS: LEVEMIR SUBCUT SCH ×2 (09:40→22:12)
[2020-04-20] MEDS: SYMBICORT 160-4.5 MCG INHALER IH SCH ×2 (09:40→22:15)
[2020-04-20] MEDS: DEXTROSE 5%-WATER IV SOLN 1,000 ML IV SCH ×2 (09:41→20:49)
--- NOTE | 2020-04-20 11:16 | PN ---
DATE OF SERVICE: 04/19/20 SUBJECTIVE: The patient has improved remarkably. Her kidney functions, creatinine less than 2, BUN much better, p02 level 23, acidosis resolving with borderline hyperkalemia. Condition improving. Continue IV fluids. The patient was seen and examined with the nurse practitioner. TIME SPENT: More than 30 minutes. Plan and coordination of the patient's care discussed in the presence of nurse. DANIELLE
--- NOTE | 2020-04-20 11:38 | DI ---
EXAM: Frontal chest HISTORY: Infiltrate, follow-up FINDINGS / IMPRESSION: Compared to 04/16/2020. Prominent heart size is again noted. There is the suggestion of mild pulmonary vascular congestion. Patchy densities are seen in the lungs similar to that previously identified which may be related to congestion or pneumonia. Correlate clinically. No visible pleural fluid or pneumothorax.
--- NOTE | 2020-04-20 13:05 | RS.SLPCNOT ---
Speech Case Note Date of Note: 04/20/20 Title: Swallow consult Note: LEAD COOK discussed swallow consult with RN, Marsha. She reported the pt is not following commands, opening mouth for oral care, nor requesting any food or drinks. LEAD COOK discussed using ice stimulation on labials. If pt does participate with ice chips, LEAD COOK will come to complete a bedside swallow evaluation to determine safest and least restrictive diet texture.
[2020-04-21] MEDS: VENTOLIN HFA (PER PUFF-WITH SPACER) IH SCH ×3 (04:38→20:02)
[2020-04-21] MEDS: DEXTROSE 5%-WATER IV SOLN 1,000 ML IV SCH ×3 (05:09→23:15)
[2020-04-21 08:30] LABS: BASOPHILS % (AUTO) 0.2 % (0.0-3.0); HEMATOCRIT 39.6 % (37.0-47.0); HEMOGLOBIN 12.9 g/dl (12.0-16.0); IMMATURE GRANULOCYTE # (AUTO) 0.1 (0.0-1.0); IMMATURE GRANULOCYTE % (AUTO) 0.9 % (0.0-5.0); LYMPHOCYTES # (AUTO) 0.7 K/uL (0.60-3.4); LYMPHOCYTES % (AUTO) 6.2 (10.0-50.0); MEAN CORPUSCULAR HEMOGLOBIN 32.3 pg (27.0-31.0); MEAN CORPUSCULAR HGB CONC 32.6 (31.8-35.4); MEAN CORPUSCULAR VOLUME 99.2 fl (81.0-99.0); MONOCYTES # (AUTO) 0.5 K/uL (0.4-2.0); MONOCYTES % (AUTO) 4.8 (0-10); NEUTROPHILS % (AUTO) 87.9 % (42.2-75.2); PLATELET COUNT 130 10^3/uL (140-440); RDW COEFFICIENT OF VARIATION 13.7 % (11.6-14.8); RED BLOOD COUNT 3.99 10^6/ul (4.20-5.40); WHITE BLOOD COUNT 11.33 K/ul (4.6-10.2)
[2020-04-21 08:42] LABS: ALANINE AMINOTRANSFERASE 28.1 U/L (0-35); ALBUMIN 2.6 g/dL (3.5-5.0); ALKALINE PHOSPHATASE 59.5 U/L (53-141); ASPARTATE AMINO TRANSFERASE 28.7 U/L (14-36); BILIRUBIN,TOTAL 0.55 mg/dL (0.2-1.3); BLOOD UREA NITROGEN 38.1 mg/dL (7-17); CALCIUM 9.19 mg/dL (8.4-10.2); CARBON DIOXIDE 25.3 mmol/L (22-30.0); CHLORIDE 117.7 mmol/L (98-107); CREATININE 1.02 mg/dL (0.60-1.30); GLUCOSE 207.6 mg/dL (74-106); POTASSIUM 4.58 mmol/L (3.5-5.1); SODIUM 144.9 mmol/L (134.5-145); TOTAL PROTEIN 5.89 g/dL (6.3-8.2)
[2020-04-21] MEDS: DECADRON IM SCH (10:32)
[2020-04-21] MEDS: ROCEPHIN 1 GM/50 ML D5W 1 GM/50 ML BAG IV SCH (10:32)
[2020-04-21] MEDS: LEVEMIR SUBCUT SCH ×2 (10:33→21:38)
[2020-04-21] MEDS: SYMBICORT 160-4.5 MCG INHALER IH SCH ×2 (11:10→21:28)
[2020-04-22] MEDS: VENTOLIN HFA (PER PUFF-WITH SPACER) IH SCH ×3 (05:43→20:53)
[2020-04-22 06:54] LABS: BASOPHILS % (AUTO) 0.2 % (0.0-3.0); EOSINOPHILS % (AUTO) 0.1 % (0.0-7.0); HEMATOCRIT 37.6 % (37.0-47.0); HEMOGLOBIN 12.8 g/dl (12.0-16.0); IMMATURE GRANULOCYTE # (AUTO) 0.1 (0.0-1.0); IMMATURE GRANULOCYTE % (AUTO) 0.8 % (0.0-5.0); LYMPHOCYTES # (AUTO) 0.7 K/uL (0.60-3.4); LYMPHOCYTES % (AUTO) 5.9 (10.0-50.0); MEAN CORPUSCULAR HEMOGLOBIN 32.2 pg (27.0-31.0); MEAN CORPUSCULAR VOLUME 94.7 fl (81.0-99.0); MONOCYTES # (AUTO) 0.5 K/uL (0.4-2.0); NEUTROPHILS # (AUTO) 10.9 K/ul (2.0-6.9); PLATELET COUNT 125 10^3/uL (140-440); RDW COEFFICIENT OF VARIATION 12.8 % (11.6-14.8); RED BLOOD COUNT 3.97 10^6/ul (4.20-5.40); WHITE BLOOD COUNT 12.25 K/ul (4.6-10.2)
[2020-04-22 07:19] LABS: ALANINE AMINOTRANSFERASE 30.7 U/L (0-35); ALBUMIN 2.55 g/dL (3.5-5.0); ALKALINE PHOSPHATASE 59.7 U/L (53-141); BILIRUBIN,TOTAL 0.67 mg/dL (0.2-1.3); BLOOD UREA NITROGEN 30.4 mg/dL (7-17); CALCIUM 8.88 mg/dL (8.4-10.2); CARBON DIOXIDE 24.4 mmol/L (22-30.0); CHLORIDE 108.1 mmol/L (98-107); CREATININE 0.84 mg/dL (0.60-1.30); GLUCOSE 214.9 mg/dL (74-106); POTASSIUM 4.4 mmol/L (3.5-5.1); SODIUM 136.1 mmol/L (134.5-145); TOTAL PROTEIN 5.81 g/dL (6.3-8.2)
[2020-04-22] MEDS: ROCEPHIN 1 GM/50 ML D5W 1 GM/50 ML BAG IV SCH (08:31)
[2020-04-22] MEDS: DECADRON IM SCH (08:32)
[2020-04-22] MEDS: LEVEMIR SUBCUT SCH ×2 (08:33→20:21)
[2020-04-22] MEDS: SYMBICORT 160-4.5 MCG INHALER IH SCH ×2 (08:35→20:23)
[2020-04-22] MEDS: DEXTROSE 5%-WATER IV SOLN 1,000 ML IV SCH ×2 (11:35→23:26)
[2020-04-23] MEDS: VENTOLIN HFA (PER PUFF-WITH SPACER) IH SCH ×2 (04:54→13:30)
[2020-04-23 05:26] VITALS: BP 162/80; TEMP 97.6
[2020-04-23 06:17] LABS: BASOPHILS % (AUTO) 0.1 % (0.0-3.0); EOSINOPHILS % (AUTO) 0.1 % (0.0-7.0); HEMATOCRIT 41.3 % (37.0-47.0); HEMOGLOBIN 13.9 g/dl (12.0-16.0); IMMATURE GRANULOCYTE # (AUTO) 0.1 (0.0-1.0); LYMPHOCYTES # (AUTO) 0.9 K/uL (0.60-3.4); LYMPHOCYTES % (AUTO) 7.3 (10.0-50.0); MEAN CORPUSCULAR HEMOGLOBIN 31.3 pg (27.0-31.0); MEAN CORPUSCULAR HGB CONC 33.7 (31.8-35.4); MONOCYTES # (AUTO) 0.6 K/uL (0.4-2.0); MONOCYTES % (AUTO) 4.7 (0-10); NEUTROPHILS # (AUTO) 10.2 K/ul (2.0-6.9); NEUTROPHILS % (AUTO) 86.8 % (42.2-75.2); PLATELET COUNT 137 10^3/uL (140-440); RDW COEFFICIENT OF VARIATION 12.6 % (11.6-14.8); RED BLOOD COUNT 4.44 10^6/ul (4.20-5.40); WHITE BLOOD COUNT 11.72 K/ul (4.6-10.2)
[2020-04-23 06:53] LABS: ALANINE AMINOTRANSFERASE 31.4 U/L (0-35); ALBUMIN 2.84 g/dL (3.5-5.0); ALKALINE PHOSPHATASE 70.6 U/L (53-141); BILIRUBIN,TOTAL 0.72 mg/dL (0.2-1.3); BLOOD UREA NITROGEN 25.7 mg/dL (7-17); CALCIUM 9.3 mg/dL (8.4-10.2); CARBON DIOXIDE 22.9 mmol/L (22-30.0); CHLORIDE 106.7 mmol/L (98-107); CREATININE 0.78 mg/dL (0.60-1.30); GLUCOSE 182.3 mg/dL (74-106); POTASSIUM 4.06 mmol/L (3.5-5.1); SODIUM 134.8 mmol/L (134.5-145); TOTAL PROTEIN 6.32 g/dL (6.3-8.2)
[2020-04-23] MEDS: ROCEPHIN 1 GM/50 ML D5W 1 GM/50 ML BAG IV SCH (09:44)
[2020-04-23] MEDS: DECADRON IM SCH (09:45)
[2020-04-23] MEDS: LEVEMIR SUBCUT SCH (09:45)
[2020-04-23] MEDS: SYMBICORT 160-4.5 MCG INHALER IH SCH (09:46)
[2020-04-23] MEDS: DEXTROSE 5%-WATER IV SOLN 1,000 ML IV SCH (12:41)
--- NOTE | 2020-04-25 13:15 | PN ---
DATE OF SERVICE: 04/23/20 - DISCHARGE NOTE SUBJECTIVE: 85-year-old white female hospitalized with renal failure and Covid status. At time of admission it was practically 10 days after her positive Covid result. Creatinine was more than 6, BUN 150 or more. She had metabolic acidosis with c02 in the low 20s. The patient has been given IV fluids. Appetite has been extremely poor. The patient has been given Rocephin, Dexamethasone, Depakote, Insulin. The patient's condition seems to have improved at least lab hunter. Her hemoglobin is 13.9, hematocrit 41, WBC 11,000, normal differential. Creatinine 0.8, BUN 30, creatinine is 0.7 with BUN of 25, potassium 4.4. PLAN: The patient is going to be discharged. I called and discussed the case with the nurse practitioner. The patient's daughter wants her to be on comfort measures. Will discharge her home with sublingual Ativan and Roxanol. Push oral fluids, frequent meals. TIME SPENT: More than 30 minutes. Plan and coordination of the patient's care discussed in the presence of nurse. DANIELLE
--- NOTE | 2020-04-25 14:04 | DS ---
DATE OF SERVICE: 04/23/20 FINAL DIAGNOSIS: 1. ACUTE RENAL FAILURE COMING FROM COVID-19 WITH POOR NUTRITIONAL STATUS WITH INABILITY TO EAT. 2. HISTORY OF COVID PNEUMONIA, SEVERE DEHYDRATION CAUSING ACUTE RENAL FAILURE. 3. CONGESTIVE HEART FAILURE. 4. DIABETES MELLITUS. 5. HYPOTHYROIDISM. 6. HYPERTENSION. 7. DEMENTIA WITH BEHAVIORAL DISORDER. DISCHARGE INSTRUCTIONS: 1. Dehydration discussed. 2. Covid-19 discussed. 3. Face coverings - masks discussed. 4. New medications discussed. 5. Resume all home medications MEDICATIONS AT DISCHARGE: She is advised to continue all of the medications that she has been on. NEW PRESCRIPTIONS: Ativan 1 mg sublingual b.i.d. p.r.n. for restlessness Roxanol .25 mL hourly p.r.n., Roxanol 10 mg/cc Dexamethasone 4 mg IM every other day Of Note: The patient is on the 18th day of being positive with Covid test. The patient is DNR and comfort measures only. SMOKING: N/A HOSPITAL COURSE: (DR. HILL) 85-year-old white female hospitalized with acute renal failure. Creatinine of 6, BUN of more than 160, metabolic acidosis. The patient was successfully treated with IV fluids. The patient's appetite is extremely poor. The patient was continued on Dexamethasone along with inhalers, insulin and the rest of the medications. Her condition improved. On discharge the patient's creatinine was .7 with BUN of 20 to 25. Acidosis simply resolved. After discussing the case with the daughter, nurse practitioner, the patient was discharged home with the hope that with daughter present in the [place] [facility], she may be able to eat. The main problem acute renal failure has completely resolved. Prognosis is poor. The patient has dementia with behavioral problems. The patient is DNR and only comfort measures. (GUILLE PEREZ, ARTISTS' MODEL) This is an 85-year-old white female who had previously been admitted to us with her first diagnosis of Covid-19. She was discharged after about one week, was doing well, had been eating well. She had no respiratory problems and was sent back to the [place] [facility]. Labs, repeat CBC and CMP were done at the [place] [facility] which showed a BUN of 107, creatinine 3.9. She was then brought back to the emergency room. She was a direct admit. She had hypernatremia along with hyperkalemia. She was placed on D5 1/2 NS at 125 cc/hr. Over the course of several days with continuous hydration, her kidney function steadily improved. She did require some Haldol as well as Ativan in order for her to keep her IV in and recover. She has not had either one of those medications for the past two days, has been resting well. Her confusion has improved. She is still not wanting to eat or drink here. I had her to be evaluated by the speech therapist was not done prior to the holiday. The daughter at this point wishes for her to go back to the [place] [facility] with the intent that she will work with the speech therapist however if she is unsuccessful in getting her to swallow, eat and drink, she understands that the acute renal failure and dehydration is likely to reoccur, She would like orders for Morphine and Ativan in case she needs to continue with comfort measures only. She does not wish for her to be readmitted, which I do feel like is a reasonable plan at this point. She will be discharged. Prognosis is poor. Again, she will have Roxanol 20 mg/5 mL, 0.25 mL q.3 p.r.n. along with Ativan 0.5 mg p.o. q.4 p.r.n. We will have order for speech therapy for them to work with her. We are going to try and continue with nectar thick liquids, pureed diet. Again, we have discussed in great detail the prognosis and likelihood of the recurrence of the dehydration. The daughter demonstrates understanding. She is discharged in guarded condition. LABS: 04/23/20 WBC 11.72, RBC 4.44, Hgb 13.9, HCT 41.3, MCV 93.0, MCH 31.3, MCHC 33.7, platelet count 137. Sodium 134.8, potassium 4.06, chloride 106.7, carbon dioxide 22.9, anion gap 9.26, BUN 25.7, creatinine 0.78, Estimated GFR 70.00, BUN/creatinine ratio 32.94, glucose 182.3, calcium 9.30, bilirubin 0.72, AST 28.0, ALT 31.4, alkaline phosphatase 70.6, total protein 6.32, albumin 2.84, globulin 3.48. TIME SPENT: More than 60 minutes. [facility]
--- NOTE | 2020-04-25 14:06 | PN ---
BILLING 04/16/20 ADMISSION DAY LEVEL 5 04/17/20 INTERMEDIATE 04/18/20 INTERMEDIATE 04/19/20 INTERMEDIATE 04/20/20 INTERMEDIATE 04/21/20 INTERMEDIATE 04/22/20 INTERMEDIATE 04/23/20 DISCHARGE MTDD
--- NOTE | 2020-04-25 14:13 | PN ---
DATE OF SERVICE: 04/20/2020 SUBJECTIVE: The patient was seen and examined with the Nurse Practitioner. The patient's kidney function from creatinine 6 and BUN of 160 is now down to 1.3 and 56 respectively. Remarkable improvement. Her potassium is down to 5.1. Glucose 200. The patient's condition overall clinically seems to have improved to some extent with the same treatment. The patient was COVID positive a couple of weeks ago. TIME SPENT: More than 30 minutes. Plan and coordination of the patient's care discussed in the presence of nurse. DANIELLE
--- NOTE | 2020-04-25 14:15 | PN ---
DATE OF SERVICE: 04/20/20 SUBJECTIVE: The patient was seen and examined with the nurse practitioner. The patient's kidney functions with creatinine of 6 and BUN of 160 now is down to 1.3 and 56 respectively with remarkable improvement. Potassium is down to 5.1. Glucose 200. The patient's condition overall clinically seems to have improved to some extent with the same treatment. The patient was Covid positive a couple of weeks ago. TIME SPENT: More than 30 minutes. Plan and coordination of the patient's care discussed in the presence of nurse. DANIELLE
--- NOTE | 2020-04-25 14:30 | PN ---
DATE OF SERVICE: 04/21/20 SUBJECTIVE: 85-year-old white female hospitalized with Covid-19 infection with dehydration and mild bronchitis. The patient's overall hydration status has improved. Kidney functions are probably back to normal. Mental status seems to have improved with more alertness. The patient was obtunded on admission. PHYSICAL EXAMINATION: VITAL SIGNS: Temperature 97.9, pulse 52, respiratory rate 19, blood pressure 170/65, pulse ox 100%. HEENT: Head normocephalic, atraumatic. Eyes: Extraocular muscles are intact. Pupils are equal, round and reactive to light and accommodation. Ears: No lesions. Nose appeared normal. Throat: No exudate or erythema. NECK: Supple. No JVD, no carotid bruit. No lymphadenopathy or thyromegaly. LUNGS: Clear to auscultation. Percussion note normal. Chest symmetrical. HEART: S1, S2, no S3. No murmurs. No cyanosis or clubbing. No ascites. Pulses: Dorsalis pedis and posterior tibial pulses +1 to +2 bilaterally. ABDOMEN: Soft. Nontender. Bowel sounds active. No CVA tenderness. No mass felt. EXTREMITIES: No edema noted. Full range of motion of all extremities, equal. NEUROLOGIC: No focal deficit. Cranial nerves II through XII are grossly intact. No headache, no double vision or headache. SKIN: Not dry. Intact. Turgor - alot better. LYMPHATIC: No palpable lymph nodes/no lymphedema. MUSCULOSKELETAL: Normal joints with no swelling. Muscle tone is normal. LABS: Hemoglobin 12.9, hematocrit 39, WBC 11,000, normal differential. Creatinine 1, BUN 38, potassium 4.5. ASSESSMENT: 1. Acute renal failure seems to have resolved. 2. Dehydration resolved. 3. Covid-19 complications are under control. 4. Blood sugar being treated with sliding scale. TIME SPENT: More than 30 minutes. Plan and coordination of the patient's care discussed in the presence of nurse. DANIELLE
--- NOTE | 2020-04-25 14:34 | PN ---
DATE OF SERVICE: 04/22/20 SUBJECTIVE: The patient was seen and examined with the nurse practitioner. The patient's condition in a way has improved to the point where her kidney failure has resolved. Hydration status has improved. Appetite is still poor. She is not eating much at all. The daughter thinks that if she takes care of her in the custodial gives extra attention she may be able to eat. The patient's Covid complications are resolved. There is no pneumonia clinically. The renal failure has resolved. The challenge will be for the patient to drink fluids and get into the shape she was in. Otherwise she is stable. The patient was seen and examined with the nurse practitioner. TIME SPENT: More than 30 minutes. Plan and coordination of the patient's care discussed in the presence of nurse. DANIELLE
--- NOTE | 2020-04-26 13:52 | PN ---
DATE OF SERVICE: 04/22/20 SUBJECTIVE: The patient is lying in bed. Speech therapy has not yet seen her. Repeat chest x-ray was done yesterday showed possible early vascular congestion. She has had shortness of breath. She is more alert however she is still not trying to swallow. I will tell the nurses to try ice chips. Kidney function is significantly improved, almost normal. REVIEW OF SYSTEMS: CONSTITUTIONAL: Weakness, confusion. No night sweats. No fatigue, malaise, lethargy. No fever or chills. HEENT: Eyes: No visual changes. No eye pain. No eye discharge. ENT: No runny nose. No epistaxis. No sinus pain. No sore throat. No odynophagia. No congestion. RESPIRATORY: No cough, no congestion. No hemoptysis. No shortness of breath. CARDIOVASCULAR: No angina symptoms. No CHF symptoms. No atypical chest pain for CAD. No palpitations. No PND. No orthopnea. GASTROINTESTINAL: No abdominal pain. No nausea or vomiting. No diarrhea or constipation. No hematemesis. No hematochezia. GENITOURINARY: No urgency. No frequency. No dysuria. No hematuria. No obstructive symptoms. No discharge. No pain. No significant abnormal bleeding. MUSCULOSKELETAL: No musculoskeletal pain; no joint swelling. NEUROLOGICAL: No headache. No neck pain. No syncope. No seizures. No dizziness. PSYCHIATRIC: Not anxious. No depression. No suicidal thoughts. No homicidal thoughts. SKIN: No rash. No lesions. No wounds. ENDOCRINE: No unexplained weight loss. No weight gain. HEMATOLOGIC/LYMPHATIC: No anemia. No purpura. No petechiae. No prolonged or excessive bleeding. No palpable lymph nodes. LABS: BUN 30, creatinine 0.84, hemoglobin 12.8, hematocrit 37.6. PLAN: 1. Decrease IV fluids to 83 cc/hr. 2. Will try ice chips. TIME SPENT: More than 30 minutes. Plan and coordination of the patient's care discussed in the presence of nurse. DANIELLE
== END 2020-04-23 15:03 | DRG 193 ==
LOC: SCU 14:33
PROVIDERS: ADMIT Internal Medicine; ATTEND Internal Medicine